=== PATIENT | female | born 1935 | race Caucasian/White ===

== ENCOUNTER 2017-05-18 20:46 | Observation (INO) ==
[2017-05-18] MEDS ORDERED: Aspirin 81 MG TAB.CHEW PO STA (20:49)
[2017-05-18 21:01] LABS: Basophils % 0.4 %; Eosinophils # 0.1 K/mcL (0.0-0.6); Eosinophils % 1.9 %; Hematocrit 36.2 % (35.3-44.9); Hemoglobin 11.7 g/dL (11.5-15.4); Immature Granulocytes % 0.4 % (0-4); Lymphocytes # 1.2 K/mcL (0.6-4.6); Lymphocytes % 16.5 %; Mean Corpuscular HGB Conc 32.3 g/dL (31.6-35.5); Mean Corpuscular Hemoglobin 30.2 pg (28.0-33.3); Mean Corpuscular Volume 93.5 fL (83.0-100.0); Mean Platelet Volume 11.6 fL (9.4-12.4); Monocytes # 0.4 K/mcL (0.0-1.3); Monocytes % 5.8 %; Neutrophils # 5.2 K/mcL (1.6-8.9); Platelet Count 169 K/mcL (140-400); Red Blood Count 3.87 M/mcL (3.82-4.97); Red Cell Distribution Width 13.2 % (11.5-14.5)
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
[2017-05-18 21:10] LABS: INR 1.1; Prothrombin Time 12.2 Seconds (9.4-12.1)
[2017-05-18 21:17] LABS: Calcium 9.1 mg/dL (8.6-10.8); Potassium 4.3 mEq/L (3.5-4.5)
[2017-05-18] MEDS ORDERED: Bumetanide 1 MG/4 ML VIAL IVP ONE (21:34)
[2017-05-19] MEDS ORDERED: Naloxone 0.4 MG/ML INJ IVP PRN (02:27)
[2017-05-19] MEDS ORDERED: Bumetanide 1 MG/4 ML VIAL IVP SCH (08:00)
[2017-05-19] MEDS ORDERED: Aspirin Enteric Coated 325 MG Tablet PO SCH ×2 (09:00→21:00)
[2017-05-19 11:01] VITALS: BP 108/52
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
--- NOTE | 2017-05-19 11:53 | Discharge Summary ---
Date of Encounter: 05/19/17 Time of Encounter: 11:00 - Discharge Diagnosis (1) Chest discomfort Priority: Primary Status: Resolved (2) Heart failure Priority: Secondary Status: Chronic Qualifiers: Heart failure type: diastolic Heart failure chronicity: chronic Qualified Code(s): I50.32 - Chronic diastolic (congestive) heart failure - Discharge Medications Prescriptions: Bumetanide [Bumex] 0.5 mg PO DAILY #15 tablet Nitroglycerin [Nitrostat] 0.4 mg SL Q5M PRN #1 vial PRN Reason: Chest Pain Home Medications: Carvedilol [Coreg] 6.25 mg PO BID 07/31/15 [History] Simvastatin [Zocor] 20 mg PO HS 07/31/15 [History] Aspirin Enteric Coated [Aspirin EC] 325 mg PO DAILY 10/14/15 [History] Ferrous Sulfate [Mykidz Iron 10] 65 mg PO DAILY 10/14/15 [History] Bumetanide [Bumex] 0.5 mg PO DAILY #15 tablet 05/19/17 [Rx] Cholecalciferol (Vitamin D3) [Vitamin D3] 2,000 unit PO QDPC 05/19/17 [History] Cyanocobalamin (Vitamin B-12) [Vitamin B12] 500 mcg PO QDPC 05/19/17 [History] Nitroglycerin [Nitrostat] 0.4 mg SL Q5M PRN #1 vial 05/19/17 [Rx] Oxybutynin Chloride [Ditropan Xl] 5 mg PO QDPC 05/19/17 [History] Allergies/Adverse Reactions: 3 Allergy/AdvReac Type Severity Reaction Status Date / Time nitroglycerin AdvReac bradycardia Verified 02/26/17 08:49 Penicillins AdvReac Confusion Verified 02/26/17 08:49 Date of admission: 05/19/17 00:46 Primary care physician: Karina Reich CNP - Patient Status Disposition: Home, Self-Care Condition: Good Functional capacity at discharge: uses cane/walker Overall status at discharge: patient is progressing back to baseline - Discharge Instructions Follow Up With: Karina Reich CNP [Primary Care Provider] - 1 week - Diet and Activity Activity: resume usual activities as tolerated Diet: advance to your usual diet Hospital course: Ms. Crane is a 81 year old female who came to emergency room stating she had onset of chest discomfort onset several hours previously after being in a stressful situation with her brother who was ill. She did not sleep well the evening of May 17 because of the persistent heaviness sensation in her chest and associated dyspnea. When symptoms did not improve after several hours she came to the emergency room. She was evaluated and admitted to [facility] for ongoing care needs. Initial orders were written by the emergency room physician. I saw her on May 19 and performed the history and physical and discharge. She was started on IV Bumex for evidence of heart failure. Repeat cardiac enzymes showed minimal change from ER value with highest reading of 0.06. I felt this was consistent with troponin leak from underlying heart failure. Her blood pressure fluctuated significantly during hospitalization so I felt it best not to increase Coreg at this time. I did start her on oral Bumex and ordered Nitrostat for prn use. When I saw her she felt back to her baseline and wished to be discharged home. Because of her past smoking history room-air oximetry will be checked on a 6 minute walk prior to discharge. She will follow with her PCP within 1 week and follow with her hat band attacher as scheduled in 2 days. - Time Spent with Patient Total time spent providing and/or coordinating discharge services: - Constitutional Vitals: Temp Pulse Resp BP Pulse Ox 98.1 F 80 16 108/52 92 05/19/17 10:05/19/17 10:05/19/17 10:00 05/19/17 10:05/19/17 10:00
--- NOTE | 2017-05-19 18:00 | Electrocardiograph Report ---
[address] [address] Test Date: 2017-05-14 Pat Name: Melia Crane Department: 9201 Room: [facility] Gender: F [place] Reamer: Masha : 1935 Requested By: Javier Echavarria Order Number: [id number] Reading MD: Anson Alfred MD Measurements Intervals [place] Rate: 77 P: 64 [place]: 173 QRS: 50 QRSD: 85 T: 57 QT: 389 QTc: 421 Interpretive Statements SINUS RHYTHM Electronically Signed On 05-19-2017 17:59:03 EDT by Anson Alfred MD
--- NOTE | 2017-05-19 18:10 | Electrocardiograph Report ---
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
== END 2017-05-19 12:50 | disposition home or self-care (01) ==
LOC: INPPIK 20:46 → EMEROOPIK 20:46 → INPPIK 05-19 01:07
PROVIDERS: ADMIT Internal Medicine; ATTEND Internal Medicine

== ENCOUNTER 2021-08-02 14:35 | Inpatient (IN) ==
[2021-08-02] MEDS ORDERED: Furosemide 40 MG/4 ML VIAL IVP ONE (16:52)
[2021-08-02 16:59] LABS: Basophils % 0.7 %; Eosinophils # 0.1 K/mcL (0.0-0.6); Eosinophils % 3.1 %; Hematocrit 29.7 % (35.3-44.9); Hemoglobin 8.4 g/dL (11.5-15.4); Immature Granulocytes % 0.2 % (0-4); Lymphocytes # 0.6 K/mcL (0.6-4.6); Mean Corpuscular HGB Conc 28.3 g/dL (31.6-35.5); Mean Corpuscular Hemoglobin 24.1 pg (28.0-33.3); Mean Corpuscular Volume 85.1 fL (83.0-100.0); Mean Platelet Volume 10.7 fL (9.4-12.4); Monocytes # 0.3 K/mcL (0.0-1.3); Monocytes % 6.2 %; Neutrophils # 3.1 K/mcL (1.6-8.9); Platelet Count 207 K/mcL (140-400); Red Blood Count 3.49 M/mcL (3.82-4.97); Red Cell Distribution Width 18.5 % (11.5-14.5); Segmented Neutrophils % 74.8 %; White Blood Count 4.2 K/mcL (4.3-11.1)
[2021-08-02 17:13] LABS: INR 1.2; Prothrombin Time 13.7 Seconds (9.4-12.1)
[2021-08-02 17:16] LABS: Activated Partial Thrombo Time 34.5 Seconds (26.0-36.0)
[2021-08-02 17:24] LABS: BUN/Creatinine Ratio 14 (6-26); Blood Urea Nitrogen 20 mg/dL (8-23); Calcium 8.9 mg/dL (8.6-10.3); Carbon Dioxide 33 mEq/L (23-29); Chloride 102 mEq/L (98-107); Glucose 98 mg/dL (70-105); Osmolality,Calculated 295 (280-300); Potassium 4.6 mEq/L (3.5-5.1); Sodium 141 mEq/L (136-145); eGFR For African Americans 44 (> 60); eGFR For Non-African Americans 37 (> 60)
[2021-08-02 17:25] LABS: Troponin I < 0.03 ng/mL (< 0.04)
[2021-08-02 17:27] LABS: Anisocytosis 1+ (Not Present); Hypochromasia Present (Not Present); Macrocytosis Present (Not Present); Microcytosis Present (Not Present)
[2021-08-02 17:28] LABS: Acanthocytes 1+ (Not Present); Ovalocytes 1+ (Not Present); Poikilocytosis 1+ (Not Present)
[2021-08-02 17:29] LABS: Tear Drop Cells 1+ (Not Present)
[2021-08-02 17:30] LABS: Platelet Estimate Normal (Normal)
[2021-08-02] MEDS ORDERED: Perflutren Lipid Microsphere 1.3 ML in 0.9 % Sodium Chloride 8.7 ML IVP PRN (19:11)
[2021-08-02] MEDS: carvediloL 6.25 MG TABLET PO SCH (20:59)
[2021-08-02] MEDS: Furosemide 40 MG/4 ML VIAL IVP SCH (23:03)
[2021-08-03] MEDS: *HR* Heparin 5,000 UNIT/ML VIAL SQ SCH ×2 (06:09→18:23)
[2021-08-03 07:10] LABS: Basophils % 0.8 %; Eosinophils # 0.1 K/mcL (0.0-0.6); Eosinophils % 3.6 %; Hematocrit 26.4 % (35.3-44.9); Hemoglobin 7.4 g/dL (11.5-15.4); Lymphocytes # 0.6 K/mcL (0.6-4.6); Lymphocytes % 15.2 %; Mean Corpuscular Hemoglobin 23.7 pg (28.0-33.3); Mean Corpuscular Volume 84.6 fL (83.0-100.0); Mean Platelet Volume 10.9 fL (9.4-12.4); Monocytes # 0.3 K/mcL (0.0-1.3); Neutrophils # 2.8 K/mcL (1.6-8.9); Platelet Count 187 K/mcL (140-400); Red Blood Count 3.12 M/mcL (3.82-4.97); Red Cell Distribution Width 18.5 % (11.5-14.5); Segmented Neutrophils % 72.4 %; White Blood Count 3.9 K/mcL (4.3-11.1)
[2021-08-03 07:32] LABS: Albumin 3.1 g/dL (3.5-5.7); Albumin/Globulin Ratio 1.1 (1.1-2.2); Bilirubin,Total 0.9 mg/dL (0.3-1.0); Calcium 8.7 mg/dL (8.6-10.3); Globulin 2.9 g/dL (2.4-3.5); Potassium 4.1 mEq/L (3.5-5.1)
[2021-08-03 08:22] LABS: Anisocytosis 1+ (Not Present); Hypochromasia Present (Not Present); Platelet Estimate Normal (Normal)
[2021-08-03] MEDS: Furosemide 40 MG/4 ML VIAL IVP SCH ×2 (08:44→22:05)
[2021-08-03] MEDS: carvediloL 6.25 MG TABLET PO SCH ×2 (08:45→20:28)
[2021-08-03] MEDS: Aspirin 81 MG TAB.CHEW PO SCH (08:49)
[2021-08-03] MEDS ORDERED: Albumin 25% 25gram/100mL 25 GM/100 ML IV.SOLN IVPB ONE ×2 (16:00→20:00)
[2021-08-04] MEDS: *HR* Heparin 5,000 UNIT/ML VIAL SQ SCH ×2 (05:46→18:44)
[2021-08-04 08:28] LABS: Basophils % 0.5 %; Eosinophils # 0.1 K/mcL (0.0-0.6); Eosinophils % 3.2 %; Hematocrit 26.6 % (35.3-44.9); Hemoglobin 7.6 g/dL (11.5-15.4); Immature Granulocytes % 0.3 % (0-4); Lymphocytes # 0.6 K/mcL (0.6-4.6); Lymphocytes % 16.4 %; Mean Corpuscular HGB Conc 28.6 g/dL (31.6-35.5); Mean Corpuscular Hemoglobin 23.7 pg (28.0-33.3); Mean Corpuscular Volume 82.9 fL (83.0-100.0); Mean Platelet Volume 10.8 fL (9.4-12.4); Monocytes # 0.3 K/mcL (0.0-1.3); Monocytes % 7.7 %; Neutrophils # 2.7 K/mcL (1.6-8.9); Platelet Count 186 K/mcL (140-400); Red Blood Count 3.21 M/mcL (3.82-4.97); Red Cell Distribution Width 18.6 % (11.5-14.5); Segmented Neutrophils % 71.9 %; White Blood Count 3.8 K/mcL (4.3-11.1)
[2021-08-04 08:37] LABS: Calcium 8.7 mg/dL (8.6-10.3); Potassium 4.1 mEq/L (3.5-5.1)
[2021-08-04 09:06] LABS: Anisocytosis 1+ (Not Present); Hypochromasia Present (Not Present)
[2021-08-04 09:07] LABS: Platelet Estimate Normal (Normal)
[2021-08-04] MEDS: Furosemide 40 MG/4 ML VIAL IVP SCH ×2 (09:40→20:06)
[2021-08-04] MEDS: carvediloL 6.25 MG TABLET PO SCH ×2 (09:41→20:05)
[2021-08-04] MEDS: Aspirin 81 MG TAB.CHEW PO SCH (09:42)
[2021-08-04] MEDS ORDERED: Albumin 25% 25gram/100mL 25 GM/100 ML IV.SOLN IVPB ONE (19:00)
[2021-08-05] MEDS: *HR* Heparin 5,000 UNIT/ML VIAL SQ SCH ×2 (06:08→16:28)
[2021-08-05 08:45] LABS: Basophils % 0.2 %; Eosinophils # 0.1 K/mcL (0.0-0.6); Eosinophils % 2.7 %; Hematocrit 26.3 % (35.3-44.9); Hemoglobin 7.8 g/dL (11.5-15.4); Lymphocytes # 0.7 K/mcL (0.6-4.6); Lymphocytes % 16.7 %; Mean Corpuscular HGB Conc 29.7 g/dL (31.6-35.5); Mean Corpuscular Hemoglobin 24.3 pg (28.0-33.3); Mean Corpuscular Volume 81.9 fL (83.0-100.0); Mean Platelet Volume 10.9 fL (9.4-12.4); Monocytes # 0.3 K/mcL (0.0-1.3); Monocytes % 7.2 %; Neutrophils # 2.9 K/mcL (1.6-8.9); Platelet Count 193 K/mcL (140-400); Red Blood Count 3.21 M/mcL (3.82-4.97); Red Cell Distribution Width 18.5 % (11.5-14.5); Segmented Neutrophils % 73.2 %
[2021-08-05 09:04] LABS: Calcium 8.8 mg/dL (8.6-10.3); Potassium 3.8 mEq/L (3.5-5.1)
[2021-08-05] MEDS: carvediloL 6.25 MG TABLET PO SCH ×2 (09:30→22:17)
[2021-08-05] MEDS: Aspirin 81 MG TAB.CHEW PO SCH (09:30)
[2021-08-05] MEDS: Furosemide 40 MG/4 ML VIAL IVP SCH ×2 (10:02→22:17)
[2021-08-05] MEDS: Doxycycline 100 MG CAPSULE PO SCH ×2 (16:28→22:16)
[2021-08-06] MEDS: *HR* Heparin 5,000 UNIT/ML VIAL SQ SCH ×2 (06:09→16:42)
[2021-08-06 09:09] LABS: Basophils % 0.7 %; Eosinophils # 0.1 K/mcL (0.0-0.6); Eosinophils % 2.7 %; Hematocrit 26.4 % (35.3-44.9); Hemoglobin 7.7 g/dL (11.5-15.4); Immature Granulocytes % 0.2 % (0-4); Lymphocytes # 0.6 K/mcL (0.6-4.6); Lymphocytes % 15.4 %; Mean Corpuscular HGB Conc 29.2 g/dL (31.6-35.5); Mean Corpuscular Hemoglobin 24.1 pg (28.0-33.3); Mean Corpuscular Volume 82.5 fL (83.0-100.0); Mean Platelet Volume 10.9 fL (9.4-12.4); Monocytes # 0.3 K/mcL (0.0-1.3); Monocytes % 7.6 %; Platelet Count 182 K/mcL (140-400); Red Cell Distribution Width 18.7 % (11.5-14.5); Segmented Neutrophils % 73.4 %; White Blood Count 4.1 K/mcL (4.3-11.1)
[2021-08-06 09:27] LABS: Calcium 8.8 mg/dL (8.6-10.3); Potassium 3.6 mEq/L (3.5-5.1)
[2021-08-06] MEDS: Aspirin 81 MG TAB.CHEW PO SCH (09:51)
[2021-08-06] MEDS: Doxycycline 100 MG CAPSULE PO SCH ×2 (09:51→20:33)
[2021-08-06] MEDS: carvediloL 6.25 MG TABLET PO SCH ×2 (09:51→20:33)
[2021-08-06] MEDS: Furosemide 40 MG/4 ML VIAL IVP SCH (10:03)
[2021-08-06] MEDS ORDERED: Bumetanide 1 MG/4 ML VIAL IVP SCH (17:00)
[2021-08-07] MEDS: *HR* Heparin 5,000 UNIT/ML VIAL SQ SCH ×2 (05:50→16:50)
[2021-08-07 07:12] LABS: Basophils % 0.7 %; Eosinophils # 0.1 K/mcL (0.0-0.6); Eosinophils % 2.6 %; Hematocrit 25.9 % (35.3-44.9); Hemoglobin 7.6 g/dL (11.5-15.4); Immature Granulocytes % 0.2 % (0-4); Lymphocytes # 0.7 K/mcL (0.6-4.6); Lymphocytes % 16.7 %; Mean Corpuscular HGB Conc 29.3 g/dL (31.6-35.5); Mean Corpuscular Hemoglobin 24.1 pg (28.0-33.3); Mean Platelet Volume 11.4 fL (9.4-12.4); Monocytes # 0.3 K/mcL (0.0-1.3); Platelet Count 172 K/mcL (140-400); Red Blood Count 3.16 M/mcL (3.82-4.97); Red Cell Distribution Width 18.6 % (11.5-14.5); Segmented Neutrophils % 71.8 %; White Blood Count 4.2 K/mcL (4.3-11.1)
[2021-08-07 07:25] LABS: Calcium 8.7 mg/dL (8.6-10.3); Potassium 3.7 mEq/L (3.5-5.1)
[2021-08-07] MEDS ORDERED: Albumin 25% 25gram/100mL 25 GM/100 ML IV.SOLN IVPB ONE ×2 (08:30→12:15)
[2021-08-07] MEDS ORDERED: Bumetanide 1 MG/4 ML VIAL IVP SCH (09:00)
[2021-08-07] MEDS: Aspirin 81 MG TAB.CHEW PO SCH (10:53)
[2021-08-07] MEDS: carvediloL 6.25 MG TABLET PO SCH ×2 (10:54→20:54)
[2021-08-07] MEDS: Doxycycline 100 MG CAPSULE PO SCH ×2 (10:54→20:54)
[2021-08-07] MEDS ORDERED: Bumetanide 1 MG TABLET PO SCH (11:00)
[2021-08-08] MEDS: *HR* Heparin 5,000 UNIT/ML VIAL SQ SCH (05:54)
[2021-08-08 07:34] VITALS: RESP 16
[2021-08-08] MEDS ORDERED: acetaZOLAMIDE 250 MG TABLET PO SCH (09:00)
[2021-08-08 09:16] LABS: Basophils % 0.5 %; Eosinophils # 0.1 K/mcL (0.0-0.6); Eosinophils % 1.7 %; Hematocrit 25.4 % (35.3-44.9); Hemoglobin 7.3 g/dL (11.5-15.4); Immature Granulocytes % 0.2 % (0-4); Lymphocytes # 0.6 K/mcL (0.6-4.6); Lymphocytes % 13.7 %; Mean Corpuscular HGB Conc 28.7 g/dL (31.6-35.5); Mean Corpuscular Hemoglobin 23.6 pg (28.0-33.3); Mean Corpuscular Volume 82.2 fL (83.0-100.0); Mean Platelet Volume 11.8 fL (9.4-12.4); Monocytes # 0.3 K/mcL (0.0-1.3); Monocytes % 7.8 %; Neutrophils # 3.1 K/mcL (1.6-8.9); Platelet Count 157 K/mcL (140-400); Red Blood Count 3.09 M/mcL (3.82-4.97); Red Cell Distribution Width 18.6 % (11.5-14.5); Segmented Neutrophils % 76.1 %; White Blood Count 4.1 K/mcL (4.3-11.1)
[2021-08-08 09:45] LABS: Calcium 8.6 mg/dL (8.6-10.3); Potassium 3.6 mEq/L (3.5-5.1)
[2021-08-08] MEDS: Aspirin 81 MG TAB.CHEW PO SCH (09:53)
[2021-08-08] MEDS: carvediloL 6.25 MG TABLET PO SCH (09:53)
[2021-08-08] MEDS: Doxycycline 100 MG CAPSULE PO SCH (09:54)
[2021-08-08 12:32] LABS: Anisocytosis 1+ (Not Present); Hypochromasia Present (Not Present); Macrocytosis Present (Not Present)
[2021-08-08 12:33] LABS: Microcytosis Present (Not Present); Ovalocytes 1+ (Not Present); Poikilocytosis 1+ (Not Present)
[2021-08-08 12:34] LABS: Platelet Estimate Normal (Normal)
[2021-08-08 16:50] VITALS: BP 114/73; PULSE 73; TEMP 97.7; O2SAT 96
[2021-08-08 17:29] LABS: ABG Base Excess 7 mEq/L (-2 to 3); ABG HCO3 32 mEq/L (21-27); ABG Oxygen Saturation 95 % (95-98); ABG PCO2 46 mmHg (35-45); ABG PH 7.45 pH Units (7.32-7.45); ABG PO2 73 mmHg (85-104); ABG TCO2 33 mEq/L (20-26)
== END 2021-08-08 18:22 | disposition other institution (70) | DRG 291 ==
LOC: EMEROOPIK 14:35 → INPPIK 14:35
PROVIDERS: ADMIT Internal Medicine; ATTEND Internal Medicine

== ENCOUNTER 2021-08-08 17:47 | Inpatient (IN) ==
[2021-08-08] MEDS: carvediloL 6.25 MG TABLET PO SCH (20:38)
[2021-08-08] MEDS: Doxycycline 100 MG CAPSULE PO SCH (20:38)
[2021-08-08] MEDS: acetaZOLAMIDE 250 MG TABLET PO SCH (22:10)
[2021-08-09] MEDS: *HR* Heparin 5,000 UNIT/ML VIAL SQ SCH ×2 (05:25→17:01)
[2021-08-09] MEDS: carvediloL 6.25 MG TABLET PO SCH ×2 (08:38→20:52)
[2021-08-09] MEDS: Doxycycline 100 MG CAPSULE PO SCH ×2 (08:38→20:51)
[2021-08-09] MEDS: acetaZOLAMIDE 250 MG TABLET PO SCH ×2 (08:38→20:52)
[2021-08-09] MEDS: Aspirin 81 MG TAB.CHEW PO SCH (08:41)
[2021-08-09 12:36] LABS: Hematocrit 26.4 % (35.3-44.9); Hemoglobin 7.5 g/dL (11.5-15.4); Mean Corpuscular HGB Conc 28.4 g/dL (31.6-35.5); Mean Corpuscular Hemoglobin 23.9 pg (28.0-33.3); Mean Corpuscular Volume 84.1 fL (83.0-100.0); Platelet Count 162 K/mcL (140-400); Red Blood Count 3.14 M/mcL (3.82-4.97); Red Cell Distribution Width 18.6 % (11.5-14.5); White Blood Count 4.3 K/mcL (4.3-11.1)
[2021-08-09 12:52] LABS: Calcium 8.5 mg/dL (8.6-10.3); Magnesium 1.9 mg/dL (1.6-2.6); Potassium 3.7 mEq/L (3.5-5.1)
[2021-08-10] MEDS: *HR* Heparin 5,000 UNIT/ML VIAL SQ SCH ×2 (05:03→17:07)
[2021-08-10] MEDS: carvediloL 6.25 MG TABLET PO SCH ×2 (09:15→20:57)
[2021-08-10] MEDS: Doxycycline 100 MG CAPSULE PO SCH ×2 (09:15→20:57)
[2021-08-10] MEDS: Aspirin 81 MG TAB.CHEW PO SCH (09:15)
[2021-08-10] MEDS: acetaZOLAMIDE 250 MG TABLET PO SCH ×2 (09:16→20:56)
[2021-08-11] MEDS: *HR* Heparin 5,000 UNIT/ML VIAL SQ SCH ×2 (04:58→17:48)
[2021-08-11] MEDS: acetaZOLAMIDE 250 MG TABLET PO SCH (09:23)
[2021-08-11] MEDS: carvediloL 6.25 MG TABLET PO SCH ×2 (09:23→20:07)
[2021-08-11] MEDS: Aspirin 81 MG TAB.CHEW PO SCH (09:23)
[2021-08-11] MEDS: Doxycycline 100 MG CAPSULE PO SCH ×2 (09:24→20:08)
[2021-08-12] MEDS: *HR* Heparin 5,000 UNIT/ML VIAL SQ SCH ×2 (05:12→17:00)
[2021-08-12] MEDS: Aspirin 81 MG TAB.CHEW PO SCH (08:18)
[2021-08-12] MEDS: Bumetanide 1 MG TABLET PO SCH ×2 (08:19→17:00)
[2021-08-12] MEDS: carvediloL 6.25 MG TABLET PO SCH ×2 (08:19→20:32)
[2021-08-13] MEDS: *HR* Heparin 5,000 UNIT/ML VIAL SQ SCH ×2 (07:38→16:57)
[2021-08-13] MEDS: carvediloL 6.25 MG TABLET PO SCH ×2 (07:42→21:46)
[2021-08-13] MEDS: Aspirin 81 MG TAB.CHEW PO SCH (07:42)
[2021-08-13] MEDS: Bumetanide 1 MG TABLET PO SCH ×2 (07:42→16:57)
[2021-08-13 09:15] LABS: Basophils % 0.6 %; Eosinophils # 0.2 K/mcL (0.0-0.6); Eosinophils % 3.8 %; Hematocrit 27.1 % (35.3-44.9); Hemoglobin 7.5 g/dL (11.5-15.4); Immature Granulocytes % 0.2 % (0-4); Lymphocytes # 0.7 K/mcL (0.6-4.6); Lymphocytes % 15.5 %; Mean Corpuscular HGB Conc 27.7 g/dL (31.6-35.5); Mean Corpuscular Hemoglobin 23.6 pg (28.0-33.3); Mean Corpuscular Volume 85.2 fL (83.0-100.0); Mean Platelet Volume 10.5 fL (9.4-12.4); Monocytes # 0.3 K/mcL (0.0-1.3); Monocytes % 6.3 %; Neutrophils # 3.5 K/mcL (1.6-8.9); Platelet Count 155 K/mcL (140-400); Red Blood Count 3.18 M/mcL (3.82-4.97); Red Cell Distribution Width 18.6 % (11.5-14.5); Segmented Neutrophils % 73.6 %; White Blood Count 4.8 K/mcL (4.3-11.1)
[2021-08-13 09:36] LABS: Albumin 3.3 g/dL (3.5-5.7); Albumin/Globulin Ratio 1.1 (1.1-2.2); Bilirubin,Total 1.2 mg/dL (0.3-1.0); Calcium 8.8 mg/dL (8.6-10.3); Globulin 2.9 g/dL (2.4-3.5); Magnesium 1.9 mg/dL (1.6-2.6); Potassium 3.9 mEq/L (3.5-5.1); Total Protein 6.2 g/dL (6.4-8.9)
[2021-08-14] MEDS: *HR* Heparin 5,000 UNIT/ML VIAL SQ SCH ×2 (06:13→16:47)
[2021-08-14] MEDS: Aspirin 81 MG TAB.CHEW PO SCH (08:04)
[2021-08-14] MEDS: Bumetanide 1 MG TABLET PO SCH ×2 (08:05→16:47)
[2021-08-14] MEDS: carvediloL 6.25 MG TABLET PO SCH ×2 (08:06→19:30)
[2021-08-15] MEDS: *HR* Heparin 5,000 UNIT/ML VIAL SQ SCH ×2 (05:40→16:54)
[2021-08-15] MEDS: Bumetanide 1 MG TABLET PO SCH ×2 (08:49→16:54)
[2021-08-15] MEDS: Aspirin 81 MG TAB.CHEW PO SCH (08:49)
[2021-08-15] MEDS: carvediloL 6.25 MG TABLET PO SCH ×2 (08:49→20:10)
[2021-08-16] MEDS: *HR* Heparin 5,000 UNIT/ML VIAL SQ SCH ×2 (05:38→17:40)
[2021-08-16] MEDS: Aspirin 81 MG TAB.CHEW PO SCH (10:03)
[2021-08-16] MEDS: carvediloL 6.25 MG TABLET PO SCH ×2 (10:03→21:17)
[2021-08-16] MEDS: Bumetanide 1 MG TABLET PO SCH ×2 (10:03→17:40)
[2021-08-17] MEDS: *HR* Heparin 5,000 UNIT/ML VIAL SQ SCH ×2 (05:30→17:42)
[2021-08-17 06:50] LABS: Hematocrit 24.7 % (35.3-44.9); Hemoglobin 7.2 g/dL (11.5-15.4); Mean Corpuscular HGB Conc 29.1 g/dL (31.6-35.5); Mean Corpuscular Hemoglobin 23.9 pg (28.0-33.3); Mean Corpuscular Volume 82.1 fL (83.0-100.0); Mean Platelet Volume 10.7 fL (9.4-12.4); Platelet Count 154 K/mcL (140-400); Red Blood Count 3.01 M/mcL (3.82-4.97); Red Cell Distribution Width 19.2 % (11.5-14.5); White Blood Count 3.8 K/mcL (4.3-11.1)
[2021-08-17 07:28] LABS: Calcium 8.8 mg/dL (8.6-10.3); Potassium 3.2 mEq/L (3.5-5.1)
[2021-08-17] MEDS: Bumetanide 1 MG TABLET PO SCH ×2 (09:08→17:42)
[2021-08-17] MEDS: carvediloL 6.25 MG TABLET PO SCH ×2 (09:08→20:23)
[2021-08-17] MEDS: Aspirin 81 MG TAB.CHEW PO SCH (09:08)
[2021-08-17 20:34] VITALS: RESP 18
[2021-08-18] MEDS: *HR* Heparin 5,000 UNIT/ML VIAL SQ SCH (06:11)
[2021-08-18 07:45] VITALS: BP 111/58; PULSE 70; TEMP 97.7; O2SAT 95
[2021-08-18] MEDS: Aspirin 81 MG TAB.CHEW PO SCH (08:48)
[2021-08-18] MEDS: Bumetanide 1 MG TABLET PO SCH (08:48)
[2021-08-18] MEDS: carvediloL 6.25 MG TABLET PO SCH (08:49)
[2021-08-18 12:53] LABS: Hematocrit 26.1 % (35.3-44.9); Hemoglobin 7.6 g/dL (11.5-15.4)
[2021-08-18 20:43] LABS: % Iron Saturation 5 % (15-50); Iron 24 mcg/dL (50-170); Transferrin 317 mg/dL (203-362)
[2021-08-18 21:08] LABS: Folate 6.8 ng/mL (3.0-16.0)
== END 2021-08-18 15:07 | disposition home health service (06) | DRG 292 ==
LOC: INPPIK 18:21
PROVIDERS: ADMIT Family Medicine; ATTEND Family Medicine